=== PATIENT | female | born 1985 | race Caucasian/White ===

== ENCOUNTER 2016-07-16 20:30 | Inpatient (IN) | payer OTHER ==
[~2016-07-16] VITALS: Ht 170.2 cm; Wt 90.3 kg
[~2016-07-16 20:30] MED LIST: FERR1TAB24 PO; FOLI0.4T2 PO; PREN-169
[2016-07-16] MEDS ORDERED: OXYTOCIN 30 UNITS/LACT RINGERS 500 ML IV ONE (20:44)
[2016-07-16] MEDS ORDERED: RINGERS SOLUTION,LACTATED 1,000 ML IV PRN (20:44)
[2016-07-16] MEDS ORDERED: RINGERS SOLUTION,LACTATED 1,000 ML IV SCH (20:44)
[2016-07-16] MEDS ORDERED: CITRIC ACID/SODIUM CITRATE 30 ML SOLUTION UDCUP PO PRN (20:45)
[2016-07-16] MEDS ORDERED: METOCLOPRAMIDE HCL 5 MG/ML 2 ML VIAL IVP PRN (20:45)
[2016-07-16] MEDS ORDERED: RINGERS SOLUTION,LACTATED 1,000 ML IV ONE ×2 (20:46→22:17)
[2016-07-16 21:10] LABS: BASOPHILS % (AUTO) 0.4 % (0.0-2.0); EOSINOPHILS % (AUTO) 0.7 % (1.0-6.0); HEMATOCRIT 36.7 % (36-46); HEMOGLOBIN 12.2 g/dL (12.0-16.0); LYMPHOCYTES # (AUTO) 2.4 K/uL (1.0-4.8); LYMPHOCYTES % (AUTO) 19.2 % (22.0-44.0); MEAN CORPUSCULAR HEMOGLOBIN 29.2 pg (26.0-34.0); MEAN CORPUSCULAR HGB CONC 33.3 G/dL (31.0-37.0); MEAN CORPUSCULAR VOLUME 88 fL (80-100); MONOCYTES # (AUTO) 0.5 K/uL (0.1-1.0); MONOCYTES % (AUTO) 4.1 % (2.0-9.0); NEUTROPHILS # (AUTO) 9.4 K/uL (1.8-7.7); NEUTROPHILS % (AUTO) 75.6 % (40.0-70.0); RED BLOOD CELL COUNT(AUTO) 4.18 MIL/uL (4.00-5.20); RED CELL DISTRIBUTION WIDTH 13.6 % (11.5-14.5); WHITE BLOOD COUNT (AUTO) 12.4 K/uL (4.5-11.0)
[2016-07-16] MEDS ORDERED: FentaNYL/BUPIV 0.125%/NS/PF 200 ML ED ONE (21:20)
[2016-07-16] MEDS ORDERED: LIDOCAINE HCL 2%/EPI 1:200,000/PF 10 ML VIAL ONE (21:20)
[2016-07-16] MEDS: FentaNYL CITRATE-PF 100 MCG/2 ML VIAL IVP PRN ×2 (21:30→21:35)
[2016-07-16] MEDS ORDERED: LIDOCAINE HCL/PF 1% 30 ML VIAL ONE (21:44)
[2016-07-16] MEDS ORDERED: LANOLIN 7 GM OINTMENT TP PRN (22:30)
[2016-07-16] MEDS ORDERED: GLYCERIN/WITCH HAZEL LEAF 40 PADS JAR TP PRN (22:30)
[2016-07-16] MEDS ORDERED: LIDOCAINE HCL/PF 1% 30 ML VIAL INJ PRN (22:30)
[2016-07-16] MEDS ORDERED: MEASLES/MUMPS/RUBELLA VACCINE, LIVE 0.5 ML/VIAL SQ ONE (22:30)
[2016-07-16] MEDS ORDERED: OxyCODONE HCL/ACETAMINOPHEN 5-325 MG TABLET PO PRN ×2 (22:30)
[2016-07-16] MEDS ORDERED: BENZOCAINE 20%/MENTHOL 56 GM SPRAY CANISTER TP PRN (22:30)
[2016-07-16 23:15] VITALS: BP 137/82
[2016-07-17] MEDS ORDERED: OXYGEN THERAPY IH SCH (08:00)
[2016-07-17 08:50] LABS: BASOPHILS % (AUTO) 0.2 % (0.0-2.0); EOSINOPHILS % (AUTO) 0.4 % (1.0-6.0); HEMOGLOBIN 10.8 g/dL (12.0-16.0); LYMPHOCYTES # (AUTO) 2.4 K/uL (1.0-4.8); LYMPHOCYTES % (AUTO) 19.4 % (22.0-44.0); MEAN CORPUSCULAR HEMOGLOBIN 29.4 pg (26.0-34.0); MEAN CORPUSCULAR HGB CONC 33.6 G/dL (31.0-37.0); MEAN CORPUSCULAR VOLUME 88 fL (80-100); MONOCYTES # (AUTO) 0.5 K/uL (0.1-1.0); MONOCYTES % (AUTO) 3.9 % (2.0-9.0); NEUTROPHILS # (AUTO) 9.5 K/uL (1.8-7.7); NEUTROPHILS % (AUTO) 76.1 % (40.0-70.0); RED BLOOD CELL COUNT(AUTO) 3.66 MIL/uL (4.00-5.20); WHITE BLOOD COUNT (AUTO) 12.4 K/uL (4.5-11.0)
[2016-07-17] MEDS: MAGNESIUM HYDROXIDE SUSPENSION 30 ML UDCUP PO SCH ×2 (08:58→20:08)
[2016-07-17] MEDS: IBUPROFEN 600 MG TABLET PO PRN ×2 (08:58→20:08)
[2016-07-18] MEDS: MAGNESIUM HYDROXIDE SUSPENSION 30 ML UDCUP PO SCH (09:00)
[2016-07-18] MEDS ORDERED: DSS100 PO (09:24)
[2016-07-18] MEDS ORDERED: IBUP-2070 PO (09:24)
[2016-07-18] MEDS ORDERED: IBUP-1681 PO (09:24)
[2016-07-18] MEDS: IBUPROFEN 600 MG TABLET PO PRN (10:56)
== END 2016-07-18 11:25 | disposition home or self-care (01) | DRG 775 ==
LOC: 4S 20:30 → OBSVTOIN 20:30
PROVIDERS: ADMIT Obstetrics & Gynecology; ATTEND Obstetrics & Gynecology
PROC: 10E0XZZ Delivery of Products of Conception, External Approach (ICD-10-PCS; principal; 2016-07-16)
PROC: 0KQM0ZZ Repair Perineum Muscle, Open Approach (ICD-10-PCS; 2016-07-16)
DX: O70.1 Second degree perineal laceration during delivery (principal); Z37.0 Single live birth; Z53.29 Procedure and treatment not carried out because of patient's decision for other reasons; Z3A.39 39 weeks gestation of pregnancy
CPT/HCPCS: 86850; 86900; 86901; J2590; J3010; J3490; J7120